=== PATIENT | female | born 1975 | race Caucasian/White ===

== ENCOUNTER → 2017-03-23 | Outpatient (CLI) | payer BC ==
--- NOTE | 2017-03-23 15:32 | Diagnostic Imaging Report ---
Indication: Pelvic pain, remote history of partial hysterectomy. Comparison: None. Discussion: Transabdominal and transvaginal sonographic evaluation of the pelvis was performed. The uterus and right ovary are surgically absent. The left ovary is enlarged measuring 5.2 x 5.7 x 4.2 cm. The left ovary maintains normal color Doppler blood flow. There is a likely hemorrhagic follicle within the left ovary measuring 4.4 x 3.2 x 3.5 cm. Recommend short-term sonographic followup in 6-12 weeks to document resolution. The vaginal cuff is unremarkable. No abnormal adnexal mass or fluid. Impression: 1. Status post hysterectomy and right oophorectomy. 2. Suspected hemorrhagic follicle within the left ovary which likely accounts for pain. Recommend short-term sonographic followup. Dictated by: Dictated on workstation # [id number]
--- NOTE | 2017-03-26 10:19 | Diagnostic Imaging Report ---
Bilateral screening mammogram. The current study was also evaluated with a Computer Aided Detection (CAD) system. INDICATION: Screening. No current complaints stated on the questionnaire. COMPARISON: None. This is a baseline study. FINDINGS: The breasts are composed of extremely dense parenchyma which would decrease mammographic sensitivity. There is a circumscribed mass measuring 1.5 cm in the lateral aspect of the right breast, and there is a 1.0-cm asymmetry along the outer aspect of the left breast. The right breast mass is probably a cyst or benign lesion based on its circumscribed margins. The asymmetry in the left breast is indeterminate. IMPRESSION: Focal compression views and ultrasound evaluation for lateral right breast mass and lateral left breast asymmetry is recommended. ACR BI-RADS Category 0: Incomplete. (Needs additional imaging evaluation). Result letter will be mailed to the patient. Note: At least 10% of breast cancer is not imaged by mammography. Dictated by: Dictated on workstation # [id number]
== END ==
LOC: RAD 14:29
PROVIDERS: ATTEND Obstetrics & Gynecology
DX: R10.2 Pelvic and perineal pain (principal); Z90.711 Acquired absence of uterus with remaining cervical stump; Z90.721 Acquired absence of ovaries, unilateral; Z12.31 Encounter for screening mammogram for malignant neoplasm of breast
CPT/HCPCS: 76830; 77067

== ENCOUNTER → 2017-04-04 | Outpatient (CLI) | payer BC ==
--- NOTE | 2017-04-04 16:04 | Diagnostic Imaging Report ---
EXAMINATION: Bilateral breast ultrasound. INDICATION: Lateral right breast mass and asymmetry in the lateral aspect of the left breast. Dense breasts. TECHNIQUE: The four-quadrants and retroareolar region of each breast were scanned. FINDINGS: RIGHT BREAST: At the 9 o'clock zone 4 cm from the nipple, there is a 1.9 x 0.8 x 1.7 cm lobulated oval hypoechoic mass. No internal vascularity is seen. This is likely a fibroadenoma and it does match the mammographic mass identified in the outer aspect of the right breast. Other lesions are also seen with very similar features including at the 7 o'clock zone 4 cm from the nipple measuring 6 mm and at the 1 o'clock zone 2 cm from the nipple also measuring 6 mm. These are all likely related to fibroadenomas. In the left breast at the 10 o'clock zone 2 cm from the nipple, there is a 9 mm similar feature lesion. IMPRESSION: Multiple bilateral hypoechoic breast masses with no significant internal vascularity. 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 Confirmation with an ultrasound-guided biopsy of the dominant lesion measuring 1.9 cm in the 9 o'clock zone of the right breast is recommended. The findings and recommendations were discussed with the patient personally before this dictation. ACR BI-RADS Category 4A: Low suspicion of malignancy Imaging Follow Up Interval: Now. Dictated by: Dictated on workstation # [id number]
--- NOTE | 2017-04-04 20:00 | Diagnostic Imaging Report ---
Bilateral diagnostic mammogram with tomographic evaluation. The current study was also evaluated with a Computer Aided Detection (CAD) system. INDICATION: Bilateral lateral breast asymmetries. FINDINGS: The breasts are composed of extremely dense parenchyma which may decrease mammographic sensitivity. The previously seen mass in the outer aspect of the right breast is well circumscribed and measuring about 2 cm. This could be a cyst or fibroadenoma. The left breast lateral asymmetry demonstrates no definitive underlying mass seen on mammography compression view or tomogram evaluation. IMPRESSION: The right breast lateral mass is a 2 cm circumscribed lesion likely benign. The left breast lateral asymmetry is not associated with a definitive underlying lesion. Ultrasound evaluation pending. ACR BI-RADS Category 0: Incomplete. (Needs additional imaging evaluation). Result letter will be mailed to the patient. Note: At least 10% of breast cancer is not imaged by mammography. Dictated by: Dictated on workstation # [id number]
== END ==
LOC: RAD 14:04
PROVIDERS: ATTEND Obstetrics & Gynecology
DX: D24.1 Benign neoplasm of right breast (principal); D24.2 Benign neoplasm of left breast
CPT/HCPCS: 77066

== ENCOUNTER → 2017-04-18 | Outpatient (CLI) | payer BC ==
[~2017-04-18] VITALS: Ht 165.1 cm; Wt 53.5 kg
[~2017-04-18] MED LIST: LIDOCAINE 1% INJ 20 ML (XYLOCAINE) VIAL INJ ONE
[2017-04-18 13:48] VITALS: BP 116/68
[2017-04-18 14:39] VITALS: BP 118/71
--- NOTE | 2017-04-18 15:39 | Diagnostic Imaging Report ---
EXAMINATION: Ultrasound-guided biopsy of a breast mass. A metallic clip placed to mandeep biopsy site. INDICATION: Right breast mass. CONSENT: Informed consent was obtained from the patient. The risks, benefits, potential complications and alternatives were reviewed and all questions answered to the patient's satisfaction. FINDINGS: Ultrasound images demonstrate a 1.9 cm mass at 9 zone, 4 CM from the nipple. PROCEDURE: After sterile preparation and draping, 1% lidocaine was utilized for local anesthesia. A 13-gauge guide needle was introduced under live ultrasound guidance to the level of the lesion. Good needle position was documented with ultrasound images. 14-gauge biopsy needle was utilized and core biopsies were performed. Multiple samples were obtained and sent to pathology. A metallic clip was placed to mandeep the site of the biopsy. A subsequent mammogram is performed and confirms the proper positioning of the clip. The patient tolerated the procedure well with no immediate complications. IMPRESSION: Successful ultrasound-guided core biopsy of one CM 9:00 right breast mass. Dictated by: Dictated on workstation # [id number]
--- NOTE | 2017-04-19 19:47 | Diagnostic Imaging Report ---
EXAMINATION: Diagnostic mammogram with CC and lateral projection views. The current study was also evaluated with a Computer Aided Detection (CAD) system. INDICATION: Documentation of clip position after ultrasound-guided biopsy. FINDINGS: There is a clip seen in satisfactory position within the lateral right breast mass. IMPRESSION: Satisfactory clip position in the lateral aspect of the left breast within a mass. Pathology results are pending. ACR BI-RADS Category 0: Incomplete. (Needs additional imaging evaluation). Result letter will be mailed to the patient. Note: At least 10% of breast cancer is not imaged by mammography. Dictated by: Dictated on workstation # [id number]
== END ==
LOC: RAD 13:38
PROVIDERS: ATTEND Obstetrics & Gynecology
DX: N63 Unspecified lump in breast (principal)
CPT/HCPCS: 19083